=== PATIENT | male | born 1935 | race Caucasian/White ===

== ENCOUNTER 2017-05-07 06:51 | Observation (INO) | payer MEDICARE, BC ==
[2017-04-30 14:43] LABS: HEMATOCRIT 44.1 % (40.0-51.0)
[2017-04-30 14:50] LABS: BUN (BLOOD UREA NITROGEN) 14 MG/DL (6-23); CALCIUM, SERUM 8.4 MG/DL (8.5-10.4); CHLORIDE, SERUM 107 MMOL/L (96-112); CO2 (CARBON DIOXIDE) 28 MMOL/L (24-34); CREATININE 1.08 MG/DL (0.70-1.30); GFR AFRICAN AMERICAN 73 ML/MIN (>=60); GFR NON AFRICAN AMERICAN 63 ML/MIN (>=60); GLUCOSE, SERUM 81 MG/DL (60-99); SODIUM, SERUM 142 MMOL/L (135-148)
[~2017-05-07] VITALS: Ht 177.8 cm; Wt 75.1 kg
--- NOTE | ~2017-05-07 | OP ---
Record Of Operation [facility] [address] [place]. [address] NAME: SILVANO MARTINEZ : 31 STATUS : DIS Alex PAT#: [id number] AGE: 82 ADM/REG DATE : 05/07/17 MR#: [id number] REPORT SERV DATE: 05/09/17 DICTATED BY: KLAUS WHITFIELD II DATE: 05/09/17 REPORT STATUS : Draft TRANSCRIBED BY: MODL DATE: 05/09/17 DATE OF PROCEDURE: 05/07/2017 PREOPERATIVE DIAGNOSES: 1. Cervical radiculopathy, severe. 2. Diskogenic neck pain. 3. Multilevel stenoses. POSTOPERATIVE DIAGNOSES: 1. Cervical radiculopathy, severe. 2. Diskogenic neck pain. 3. Multilevel stenoses. PROCEDURE: 1. C4-5, C5-6, C6-7 anterior interbody arthrodesis. 2. Application of prosthetic device, C4-5, C5-6, and C6-7. 3. Anterior instrumentation, C4-5, C5-6, C6-7 (four segments). 4. Use of allograft substitute and bone marrow aspirate. 5. Use of the microscope. FLUIDS: Approximately 1400 mL LR. ESTIMATED BLOOD LOSS: 25 mL. DRAINS: One drain. COMPLICATIONS: No complications. ANTIBIOTICS: Preoperatively. PREOPERATIVE HISTORY: This is a very friendly 82-year-old gentleman who reports significant neck pain radiating into the shoulder blade on the right down the arm consistent with radiculopathy. Overall, he is an exceptionally active gentleman who does not act nor look like he is 82. He is extremely spry and mentally sharp. Physically, he has had some issues with his kidneys which are fairly well chronicled in his medical history. We discussed the risks and benefits of surgery. Also discussed with Anesthesia the history of his kidney issues. We felt that we would go extremely easy on narcotics as there were some implications in his previous kidney problems. We also thought we would run his pressures higher for perfusion reasons. I discussed with him the significant risk of dysphagia as well as vocal cord paralysis and a very small chance of spinal cord injury. We discussed hardware failure and adjacent segment degeneration. We discussed the rates of success and failure of the surgery to help neck pain and arm pain respectively. I spent approximately 25 minutes in the preoperative holding area talking with him and his family, answered all their questions. DESCRIPTION OF PROCEDURE: After informed consent was obtained, the patient was brought to Record Of Operation [address] [address] NAME: SILVANO MARTINEZ : 31 STATUS : DIS Alex PAT#: [id number] AGE: 82 ADM/REG DATE : 05/07/17 MR#: [id number] REPORT SERV DATE: 05/09/17 DICTATED BY: KLAUS WHITFIELD II DATE: 05/09/17 REPORT STATUS : Draft TRANSCRIBED BY: DOUG DATE: 05/09/17 the operating room at his request and general anesthesia achieved. He was placed in the supine position, and the neck and iliac crest prepped and draped in a sterile fashion. 5 mL of bone marrow was aspirated from the right iliac crest followed by a right-sided longitudinal incision. The interval was explored, and the deep cervical fascia incised. The subperiosteal exposure was completed from C4-7. The Nurse Emergency retractor was placed underneath the longus colli muscles. The ET tube cuff was deflated and reinflated. Next, the [place] pins were placed into C4 through C7. The microscope was brought into place. Under microscopic visualization, the diskectomy was now initiated at C4-5. The endplates were now prepared following diskectomy. The pituitary rongeurs, Kerrison rongeurs, and the high-speed bur were used to create parallel endplates and also to remove the posterior vertebral body osteophytes. The central canal was now better decompressed by removing the posterior ligament and additional osteophytes. The foraminotomies were now completed to decompress the C5 nerve roots. The prosthetic device was then chosen and placed at C4-5. This contained allograft substitute and bone marrow aspirate. Next, the C5-6 disk was removed with pituitary rongeurs, [place] rongeurs, and curettes. The endplates were now denuded of their cartilage, and the posterior longitudinal ligament now removed to decompress the canal and the foramen. The prosthetic device was then well placed at C5-6. Lastly, the C6-7 level was addressed in a similar manner with diskectomy and endplate preparation. The pituitary rongeurs, Kerrison rongeurs, and curettes were used along with the high-speed bur. The endplates were now denuded of their cartilage and the posterior vertebral body osteophytes were removed including resection of the posterior longitudinal ligament. The foraminotomies were now completed with the Kerr[place] rongeurs and the prosthetic device was now placed at C6-7. Excellent fit was obtained. Next, the [place] pins were removed and the separate plate and screw construct employed. The instrumentation was now applied into C4, C5, C6, and C7. Multiplanar imaging confirmed acceptable placement of the implants. A deep drain was placed followed by standard closure, and the patient was then extubated and transferred to PACU in stable condition. ALTA/DOUG Klaus Whitfield II, M.D. / [id number] CC: Zack Reyes II, D.O.
[~2017-05-07 06:51] MED LIST: 8 HOUR650 MG PO; C5; EYE INJECTION; FLOMAX4 PO; JANTOVEN2.5 MG PO; JANTOVEN5 MG PO; MIRALAXPKT PO; MOBIC15 MG PO; OXYCOD PO; PRINZIDE1 TA1 PO; ZESTORETIC PO; ZOFRAN4 PO; [UNRECOGNIZED DRUG - OTHER] PO
== END 2017-05-09 14:13 | disposition home or self-care (01) ==
LOC: ENRESERV → ENRESERVTM → ENRESERVDT → SDC/OF 06:51 → 3SO 06:51 → PACU 12:29 → 3SO 17:34
PROVIDERS: Orthopaedic Surgery
PROC: 0RT30ZZ Resection of Cervical Vertebral Disc, Open Approach (ICD-10-PCS; 2017-05-07)
PROC: 07DR3ZZ Extraction of Iliac Bone Marrow, Percutaneous Approach (ICD-10-PCS; 2017-05-07)
PROC: 0RG20A0 Fusion of 2 or more Cervical Vertebral Joints with Interbody Fusion Device, Anterior Approach, Anterior Column, Open Approach (ICD-10-PCS; principal; 2017-05-07 08:30)
PROC: 0RG20K0 Fusion of 2 or more Cervical Vertebral Joints with Nonautologous Tissue Substitute, Anterior Approach, Anterior Column, Open Approach (ICD-10-PCS; 2017-05-07 08:30)
DX: M48.02 Spinal stenosis, cervical region (principal); M50.123 Cervical disc disorder at C6-C7 level with radiculopathy; I10 Essential (primary) hypertension; Z98.41 Cataract extraction status, right eye; Z98.42 Cataract extraction status, left eye; Z96.1 Presence of intraocular lens; Z88.8 Allergy status to other drugs, medicaments and biological substances; Z88.5 Allergy status to narcotic agent; Z79.899 Other long term (current) drug therapy; Z98.890 Other specified postprocedural states; Z98.1 Arthrodesis status
CPT/HCPCS: 80048; 82962; 85014; 85018; 87641; 88304; 88311; 93005; 96374; 96375; 96376; 97161-GP; A9270-GY; C1713; G0378; G8978-CH-GP; G8980-CH-GP; J0690; J1885; J2250; J2405; J2710; J3010

== ENCOUNTER 2017-05-11 11:46 | Observation (INO) | payer MEDICARE, BC ==
[~2017-05-11] VITALS: Ht 178 cm; Wt 71.2 kg
--- NOTE | ~2017-05-11 | HP ---
History And Physical [facility] [place] [id number] [facility] [place]. [address] NAME: SILVANO MARTINEZ : 31 STATUS : ADM Alex PAT#: [id number] AGE: 82 ADM/REG DATE : 05/11/17 MR#: [id number] REPORT SERV DATE: 05/13/17 DICTATED BY: KLAUS ALAS II DATE: 05/13/17 REPORT STATUS : Draft TRANSCRIBED BY: DOUG DATE: 05/13/17 DATE OF ADMISSION: 05/11/2017 CHIEF COMPLAINT: Difficulty swallowing. HISTORY OF PRESENT ILLNESS: A very friendly, 82-year-old gentleman, who is extremely active and healthy. He underwent ACDF last week successfully and has much improved neck and arm pain. I kept him for two days in order to slowly advance his diet. He was tolerating diet very well and discharge home. Unfortunately, in the last day or so, he has been unable to swallow even liquids. He is having no shortness of breath. No fevers or chills. PAST MEDICAL HISTORY: As above. Additional past medical history of asthma, COPD, and history of hypertension. REVIEW OF SYSTEMS: Please see the ER triage sheet dated 05/11/2017, I have reviewed it and agree with it. PHYSICAL EXAMINATION: GENERAL: A gentleman in no acute distress. He is awake, alert, and oriented. HEENT: He has no tracheal deviation. His incision is clean dry and intact. There is no erythema. NECK: There is no edema or swelling about his neck. RESPIRATORY: He is having no shortness of breath. He does seem to have some difficulty handling his oral secretions. CHEST: No stridor on inspiration or expiration. CARDIOVASCULAR: Regular rate and rhythm when I palpate the radial pulse. ABDOMEN: Soft. LABORATORY DATA: CT scan shows no significant hematoma. There is no shift in his trachea. IMPRESSION AND PLAN: Dysphagia status post anterior cervical discectomy and fusion. We will have Gastroenterology see him and start some steroids. He does not appear to need any surgery at this point, but we will follow him closely. BILL Klaus Alas II, M.D. / [id number] CC: Zack Reyes II, D.O.
--- NOTE | ~2017-05-11 | CN ---
Consultation Report [facility] [address] [place]. [address] NAME: SILVANO MARTINEZ : 31 STATUS : ADM Alex PAT#: [id number] AGE: 82 ADM/REG DATE : 05/11/17 MR#: [id number] REPORT SERV DATE: 05/12/17 DICTATED BY: CARLOS A PORTER DATE: 05/12/17 REPORT STATUS : Draft TRANSCRIBED BY: MODL DATE: 05/12/17 DATE OF CONSULTATION: HISTORY OF PRESENT ILLNESS: This is a very pleasant patient recently had a cervical plate placed. He began having some dysphagia after he went home. He had trouble getting liquids down. He received some Decadron. He has actually improved somewhat today. PAST MEDICAL HISTORY: Hypertension, arthritis, and melanoma. PAST SURGICAL HISTORY: Colonoscopy and EGD. PHYSICAL EXAMINATION: VITAL SIGNS: Weight 156, blood pressure is 165/105, and pulse 110. GENERAL: Looks much younger than stated age. Has a recent incision on his right side of his neck anteriorly. CHEST: Clear to A and P. CARDIAC: Normal. ABDOMEN: Soft, nontender. IMPRESSION: Oropharyngeal dysphagia prior related to swelling from the cervical vertebral surgery. Seems to be improved with steroids. PLAN: 1. Agree with Decadron. 2. We will slowly advance diet. 3. Keep avoid cold liquids at this point. MG/MODL Carlos A Porter M.D. / [id number] CC: Zack Reyes II, D.O.
[2017-05-11 16:22] LABS: BASOPHILS 0.2 %; BASOPHILS ABSOLUTE 0.02 10/3/uL (0.0-0.16); EOSINOPHILS 1.1 %; EOSINOPHILS ABSOLUTE 0.12 10/3/uL (0.0-0.53); HEMATOCRIT 45.6 % (40.0-51.0); IMMATURE GRANULOCYTES 0.3 %; IMMATURE GRANULOCYTES ABSOLUTE 0.03 10/3/uL (0.0-0.11); LYMPHOCYTES 10.9 %; LYMPHOCYTES ABSOLUTE 1.15 10/3/uL (0.67-4.30); MEAN CORPUSCULAR HEMOGLOB 31.6 pg (26.0-34.0); MEAN CORPUSCULAR VOLUME 89.9 fL (80-100); MEAN PLATELET VOLUME 9.7 fL (9.2-13.0); MONOCYTES 9.7 %; MONOCYTES ABSOLUTE 1.02 10/3/uL (0.21-1.20); NEUTROPHILS 77.8 %; NEUTROPHILS ABSOLUTE 8.19 10/3/uL (2.02-8.40); PLATELET COUNT 205 10/3/uL (150-400); RBC DISTRIBUTION WIDTH 13.3 % (12.0-16.0)
[2017-05-11 16:23] LABS: ER CBC TAT 0 Hrs 07 Mins; MANUAL DIFF NO %; MEAN CORPUS HGB CONC 35.1 g/dL (32.0-36.0); RED CELL COUNT 5.07 10/6/uL (4.7-6.1); WHITE BLOOD CELLS 10.5 10/3/uL (4.5-10.5)
[2017-05-11 16:39] LABS: LACTATE 1.1 MMOL/L (0.3-2.4)
[2017-05-11 16:48] LABS: ALKALINE PHOSPHATASE 66 U/L (45-117); BUN (BLOOD UREA NITROGEN) 17 MG/DL (6-23); CALCIUM, SERUM 9.1 MG/DL (8.5-10.4); CHLORIDE, SERUM 105 MMOL/L (96-112); CO2 (CARBON DIOXIDE) 27 MMOL/L (24-34); GFR AFRICAN AMERICAN 80 ML/MIN (>=60); GFR NON AFRICAN AMERICAN 69 ML/MIN (>=60); GLUCOSE, SERUM 89 MG/DL (60-99); POTASSIUM, SERUM 3.8 MMOL/L (3.5-5.3); SGOT(AST) 17 U/L (5-40); SGPT(ALT) 27 U/L (5-65); SODIUM, SERUM 140 MMOL/L (135-148)
[2017-05-11 16:50] LABS: A/G RATIO 0.9 (0.7-1.9); ALBUMIN 3.6 G/DL (3.5-5.0); GLOBULIN 3.8 G/DL (2.5-4.1); TOTAL BILIRUBIN 1.3 MG/DL (0-1.2); TOTAL PROTEIN 7.4 G/DL (6.0-8.5)
[2017-05-11] MEDS ORDERED: KRILLOIL PO (19:35)
[2017-05-11] MEDS ORDERED: GLUCCHONDR PO (19:35)
[2017-05-11] MEDS ORDERED: VITAMIN D31000 UNIT PO (19:35)
[2017-05-11] MEDS ORDERED: ULTRAM50 PO (19:35)
[2017-05-11] MEDS ORDERED: CENTRUM PO (19:35)
[2017-05-11] MEDS ORDERED: BIOTIN5 MG PO (19:35)
[2017-05-11] MEDS ORDERED: ZESTRIL10 MG PO (19:37)
[2017-05-11] MEDS ORDERED: FLOMAX4 PO (19:37)
[2017-05-13] MEDS ORDERED: MEDROLPAK4 PO (12:04)
== END 2017-05-13 14:23 | disposition home or self-care (01) ==
LOC: ER 11:46 → 3SO 20:58
PROVIDERS: Emergency Medicine
DX: M96.89 Other intraoperative and postprocedural complications and disorders of the musculoskeletal system (principal); R13.12 Dysphagia, oropharyngeal phase; J44.9 Chronic obstructive pulmonary disease, unspecified; I10 Essential (primary) hypertension; M19.90 Unspecified osteoarthritis, unspecified site; Z79.899 Other long term (current) drug therapy; Z98.890 Other specified postprocedural states; Z88.5 Allergy status to narcotic agent; Z88.8 Allergy status to other drugs, medicaments and biological substances; Z98.41 Cataract extraction status, right eye; Z98.42 Cataract extraction status, left eye; Z96.1 Presence of intraocular lens
CPT/HCPCS: 70491; 71010; 80053; 82962; 83605; 85025; 87040; 96375; 96376; 99285; A9270-GY; G0378; Q9967